=== PATIENT | female | born 1945 | race African-American/Black ===

== ENCOUNTER 2017-08-19 12:55 | Emergency (ER) | payer OTHER, MEDICARE ==
[2017-08-19 13:06] VITALS: BP 146/74; PULSE 83; TEMP 98.1; BMI 30.3
--- NOTE | 2017-08-19 15:15 | PDOC ---
History of Present Illness - General Chief Complaint: Pain Stated Complaint: LT SHOULDER PAIN Time Seen by Provider: 08/19/17 14:49 History Source: Patient Exam Limitations: No Limitations - History of Present Illness Initial Comments: 08/19/17 15:16 My chief complaint left lateral neck pain radiating down left arm to left middle finger, left upper back History of Present Illness: Patient is a 71-year-old female with a history of rzt-prbtgah-laimgqhae diabetes, hypertension, hyperlipidemia here today complaining of left lateral neck pain radiating to her left shoulder down her left arm to her left finger times one month. Patient also reports having increased pain in her left shoulder with movement of her left shoulder that radiated to her left posterior upper back. Patient reports that she has had slight decreased range of motion of her left middle distal finger since she has had this pain times one month. Patient denies any injuries or fall. Patient denies any weakness of left arm or any numbness of arm. Patient has not taken anything for pain. Patient has slightly decreased range of motion at her left shoulder. Occurred: reports: other (once ) Severity: reports: moderate Upper Extremity Pain Location: left: 3rd finger, forearm, arm (left ), shoulder , other (lateral neck ) Method of Injury: reports: unknown Modifying Factors: improves with: None Extremity Pain Location - Extremity Pain Location Extremity Pain Locations: left: 3rd finger, forearm, arm Past History - Past Medical History Allergies/Adverse Reactions: Allergies Allergy/AdvReac Type Severity Reaction Status Date / Time meloxicam AdvReac Intermediate Itching Verified 08/19/17 13:02 Home Medications: Ambulatory Orders Atorvastatin Ca [Lipitor] 40 mg PO HS 05/10/16 Benazepril HCl 10 mg PO DAILY 05/10/16 Cholecalciferol (Vitamin D3) [Vitamin D3] 2,000 unit PO DAILY 05/10/16 Divalproex [Depakote -] 500 mg PO DAILY 05/10/16 Ferrous Sulfate [Feosol] 325 mg PO DAILY 05/10/16 Hydrochlorothiazide [Hctz -] 12.5 mg PO DAILY 05/10/16 Metformin HCl 500 mg PO DAILY 05/10/16 Amlodipine Besylate 5 mg PO DAILY 11/18/16 Acetaminophen with Codeine [Tylenol with Codeine #3 Tablet] 1 each PO Q6H PRN # 12 tablet MDD 4 08/19/17 Aspirin [ASA -] 81 mg PO DAILY 08/19/17 Metoprolol Succinate [Toprol Xl] 50 mg PO ASDIR 08/19/17 Anemia: No Asthma: No Cancer: No Cardiac Disorders: No CVA: No COPD: No CHF: No Dementia: No Diabetes: Yes GI Disorders: No Disorders: No HTN: Yes Hypercholesterolemia: Yes Liver Disease: No Seizures: No Thyroid Disease: No - Surgical History Abdominal Surgery: Yes (HEMMORHOIDECTOMY) Appendectomy: No Cardiac Surgery: No Cholecystectomy: No Lung Surgery: No Neurologic Surgery: No Orthopedic Surgery: No - Suicide/Smoking/Psychosocial Hx Smoking History: Never smoked Have you smoked in the past 12 months: No Hx Alcohol Use: No Drug/Substance Use Hx: No Substance Use Type: None Hx Substance Use Treatment: No Review of Systems - Review of Systems Able to Perform ROS?: Yes Constitutional: No: Symptoms Reported HEENTM: No: Symptoms Reported Respiratory: No: Symptoms reported Cardiac (ROS): No: Symptoms Reported, Chest Tightness Musculoskeletal: Yes: Joint Pain (left shoulder, upper and lower left arm to left 3rd finger), Neck Pain (left neck ) Integumentary: No: Symptoms Reported Neurological: No: Symptoms reported *Physical Exam - Vital Signs Last Vital Signs Temp Pulse Resp BP Pulse Ox 98.1 F 83 19 146/74 100 08/19/17 13:03 08/19/17 13:03 08/19/17 13:03 08/19/17 13:03 08/19/17 13:03 - Physical Exam General Appearance: Yes: Appropriately Dressed Neck: positive: Tender lateral (left lateral ). negative: Tender, Decreased range of motion, Lymphadenopathy (R), Lymphadenopathy (L), Rigidity, Tender midline Respiratory/Chest: positive: Lungs Clear, Normal Breath Sounds. negative: Chest Tender, Respiratory Distress Cardiovascular: positive: Regular Rhythm, Regular Rate, S1, S2 Musculoskeletal: positive: Normal Inspection. negative: CVA Tenderness, CVA Tenderness (R), CVA Tenderness (L), Decreased Range of Motion, Vertebral Tenderness Extremity: positive: Normal Capillary Refill, Tender (left shoulder ). negative : Normal Inspection, Normal Range of Motion (slightly decreased left shoulder, decreased rom left DIP jt. ) Integumentary: positive: Normal Color Neurologic: positive: Alert, Normal Response, Respond to painful stimul, Responsive. negative: Numbness, Sensory Deficit (left arm, hand. digits) ED Treatment Course - RADIOLOGY Radiology Studies Ordered: Category Date Time Status SHOULDER-LEFT [RAD] Stat Radiology 08/19/17 15:09 Ordered SPINE-CERVICAL [RAD] Stat Radiology 08/19/17 15:09 Ordered Medical Decision Making - Medical Decision Making 08/19/17 15:36 Patient is a 71-year-old female with a history of [id number] diabetes , hypertension, hyperlipidemia here today complaining of left lateral neck pain radiating to her left shoulder down her left arm to her left finger times one month. Patient also reports having increased pain in her left shoulder with movement of her left shoulder that radiated to her left posterior upper back. Patient reports that she has had slight decreased range of motion of her left middle distal finger since she has had this pain times one month. Patient denies any injuries or fall. Patient denies any weakness of left arm or any numbness of arm. Patient has not taken anything for pain. Patient has slightly decreased range of motion at her left shoulder. left neck pain with radiation down left arm to 3rd finger left shoulder pain left upper back pain PLAN: xray cervical spine moderate degenerative arthritis, no fracture or acute bony abnormalities per Dr. Camargo xray left shoulder no fracture or acute bony abnormalities per Dr. Camargo 08/19/17 15:57 acetaminophen with codeine # 3 one tab every 6 hrs prn pain follow up with ortho 08/19/17 16:24 *DC/Admit/Observation/Transfer Diagnosis at time of Disposition: Cervical radiculopathy Shoulder pain, left Qualifiers: Chronicity: acute Qualified Code(s): M25.512 - Pain in left shoulder - Prescriptions Prescriptions: Acetaminophen with Codeine [Tylenol with Codeine #3 Tablet] 1 each PO Q6H PRN # 12 tablet MDD 4 PRN Reason: Pain - Referrals Referrals: Dennis Alvarez MD [Primary Care Provider] - Iron [place] MD [Staff Physician] - - Patient Instructions Additional Instructions: FOLLOW UP WITH ORTHOPEDIST SOON POSSIBLE AVOID ANY STRENOUS EXERCISES OR LIFTING RETURN TO EMERGENCY ROOM IF SYMPTOMS WORSEN PATIENT VOICED UNDERSTANDING OF DISCHARGE INSTRUCTIONS AND ALL QUESTIONS WERE ANSWERED - Post Discharge Activity
== END 2017-08-19 16:29 | disposition home or self-care (01) ==
LOC: JERFT 12:55
DX: M54.12 Radiculopathy, cervical region (principal); I10 Essential (primary) hypertension; Z79.84 Long term (current) use of oral hypoglycemic drugs; E78.00 Pure hypercholesterolemia, unspecified
CPT/HCPCS: 72050-TC; 73030-TC-LT; 99281-25

== ENCOUNTER 2019-01-26 19:54 | Emergency (ER) | payer OTHER, MEDICARE ==
--- NOTE | 2019-01-26 19:58 | PDOC ---
Rapid Medical Evaluation Time Seen by Provider: 01/26/19 19:58 Medical Evaluation: Allergies Allergy/AdvReac Type Severity Reaction Status Date / Time meloxicam AdvReac Intermediate Itching Verified 11/28/17 13:00 01/26/19 19:59 I have performed a brief in-person evaluation of this patient. The patient presents with a chief complaint of: palpitations, shortness of breath Pertinent physical exam findings:stable and in NAD, non-focal I have ordered the following:labs, ekg, chest xray The patient will proceed to the ED for further evaluation. 01/26/19 20:16 01/26/19 20:23
[2019-01-26 20:19] VITALS: BMI 30.7
[2019-01-26 21:54] LABS: BASO % 0.4 % (0-2.0); EOS % 1.3 % (0-4.5); HEMATOCRIT 37.3 % (32.4-45.2); HEMOGLOBIN 11.5 GM/dL (10.7-15.3); LYMPH % 42.8 % (8-40); MCH 22.7 pg (25.7-33.7); MCHC 30.8 g/dl (32.0-36.0); MEAN CELL VOLUME 73.8 fl (80-96); MONO % 8.1 % (3.8-10.2); NEUT % 47.4 % (42.8-82.8); PLATELET COUNT 323 K/MM3 (134-434); RBC 5.05 M/mm3 (3.60-5.2); RDW 15.4 % (11.6-15.6); WHITE BLOOD COUNT 7.4 K/mm3 (4.0-10.0)
[2019-01-26 22:23] LABS: ALBUMIN 4.3 g/dl (3.4-5.0); ALK PHOS 66 U/L (45-117); ANION GAP 6 MMOL/L (8-16); BILIRUBIN,TOTAL 0.4 mg/dL (0.2-1); BLOOD UREA NITROGEN 16 mg/dL (7-18); CALCIUM 9.7 mg/dL (8.5-10.1); CHLORIDE 104 mmol/L (98-107); CO2 27 mmol/L (21-32); CREATININE 1.2 mg/dL (0.55-1.3); GLUCOSE,RANDOM 101 mg/dL (74-106); POTASSIUM 4.4 mmol/L (3.5-5.1); SGOT/AST 25 U/L (15-37); SGPT/ALT 45 U/L (13-61); SODIUM 137 mmol/L (136-145); TOT PROT 9.3 g/dl (6.4-8.2)
[2019-01-26] MEDS ORDERED: METOPROLOL TARTRATE 25 MG TABLET (FP) PO ONE (22:49)
[2019-01-26] MEDS ORDERED: METOPROLOL TARTRATE 25 MG TABLET (FP) ONE (23:04)
--- NOTE | 2019-01-26 23:09 | PDOC ---
Documentation entered by Ángel Avendaño SCRIBE, acting as scribe for Ceci Agustin MD. Ceci Agustin MD: This documentation has been prepared by the Kateryna umanzor Xhesika, SCRIBE, under my direction and personally reviewed by me in its entirety. I confirm that the documentation accurately reflects all work, treatment, procedures, and medical decision making performed by me. History of Present Illness - General Chief Complaint: Palpitations Stated Complaint: PALPITATIONS Time Seen by Provider: 01/26/19 19:58 History Source: Patient Exam Limitations: No Limitations - History of Present Illness Initial Comments: 01/26/19 22:44 The patient is a 73 year old female, with a significant PMH of Hypertension, hyperlipidemia, and diabetes who presents to the emergency department with 2 episodes of chest palpitations and SOB. The patient states her symptoms began at 5pm after eating dinner, lasted 5 minutes before subsiding and recurred again at 6pm. As per daughter, the patient was feeling weak, however, the patient denies any complaints. The patient states her last stress test and echo was in 2018. The patient denies fever, chills, nausea, vomiting, diarrhea or constipation. The patient denies dysuria, frequency, urgency or hematuria. Allergy: meloxicam Surgical History: HEMORRHOIDECTOMY, shoulder surgery, TL Social History: None reported PCP: Dennis Little Past History - Past Medical History Allergies/Adverse Reactions: Allergies Allergy/AdvReac Type Severity Reaction Status Date / Time meloxicam AdvReac Intermediate Itching Verified 01/26/19 20:19 Home Medications: Ambulatory Orders Atorvastatin Ca [Lipitor] 40 mg PO HS 05/10/16 Benazepril HCl 10 mg PO DAILY 05/10/16 Cholecalciferol (Vitamin D3) [Vitamin D3] 2,000 unit PO DAILY 05/10/16 Hydrochlorothiazide [Hctz -] 12.5 mg PO DAILY 05/10/16 metFORMIN HCL [Metformin HCl] 500 mg PO DAILY 05/10/16 Amlodipine Besylate 5 mg PO DAILY 11/18/16 Aspirin [ASA -] 81 mg PO DAILY 08/19/17 Anemia: No Asthma: No Cancer: No Cardiac Disorders: No CVA: No COPD: No CHF: No Dementia: No Diabetes: Yes GI Disorders: No Disorders: No HTN: Yes Hypercholesterolemia: Yes Liver Disease: No Seizures: No Thyroid Disease: No - Surgical History Abdominal Surgery: Yes (HEMMORHOIDECTOMY) Appendectomy: No Cardiac Surgery: No Cholecystectomy: No Lung Surgery: No Neurologic Surgery: No Orthopedic Surgery: No - Suicide/Smoking/Psychosocial Hx Smoking History: Unknown if ever smoked Have you smoked in the past 12 months: No Information on smoking cessation initiated: No Hx Alcohol Use: No Drug/Substance Use Hx: No Substance Use Type: None Hx Substance Use Treatment: No Cardiac Specific PMH - Complaint Specific PMHX Pacemaker: No Review of Systems - Review of Systems Able to Perform ROS?: Yes Comments:: 01/26/19 22:46 GENERAL/CONSTITUTIONAL: No fever or chills. No weakness. HEAD, EYES, EARS, NOSE AND THROAT: No change in vision. No ear pain or discharge. No sore throat. CARDIOVASCULAR: (+) chest palpitations. (+) shortness of breath. RESPIRATORY: No cough, wheezing, or hemoptysis. GASTROINTESTINAL: No nausea, vomiting, diarrhea or constipation. GENITOURINARY: No dysuria, frequency, or change in urination. MUSCULOSKELETAL: No joint or muscle swelling or pain. No neck or back pain. SKIN: No rash NEUROLOGIC: No headache, vertigo, loss of consciousness, or change in strength/ sensation. ENDOCRINE: No increased thirst. No abnormal weight change. HEMATOLOGIC/LYMPHATIC: No anemia, easy bleeding, or history of blood clots. ALLERGIC/IMMUNOLOGIC: No hives or skin allergy. *Physical Exam - Vital Signs Last Vital Signs Temp Pulse Resp BP Pulse Ox 98.0 F 110 H 20 147/109 H 99 01/26/19 22:43 01/26/19 22:43 01/26/19 22:43 01/26/19 22:43 01/26/19 22:43 - Physical Exam Comments: 01/26/19 22:46 GENERAL: Awake, alert, and fully oriented, in no acute distress HEAD: No signs of trauma EYES: PERRLA, EOMI, sclera anicteric, conjunctiva clear ENT: Auricles normal inspection, hearing grossly normal, nares patent, oropharynx clear without exudates. Moist mucosa NECK: Normal ROM, supple, no lymphadenopathy, JVD, or masses LUNGS: Breath sounds equal, clear to auscultation bilaterally. No wheezes, and no crackles HEART: Regular rate and rhythm, normal S1 and S2, no murmurs, rubs or gallops ABDOMEN: Soft, nontender, normoactive bowel sounds. No guarding, no rebound. No masses EXTREMITIES: (+) +1 mild pitting edema. Normal range of motion No clubbing or cyanosis. No cords, erythema, or tenderness NEUROLOGICAL: Cranial nerves II through XII grossly intact. Normal speech, normal gait SKIN: Warm, Dry, normal turgor, no rashes or lesions noted. ED Treatment Course - LABORATORY CBC & Chemistry Diagram: 01/26/19 21:30 01/26/19 21:30 - ADDITIONAL ORDERS Additional order review: Laboratory Results 01/26/19 21:30 Sodium 137 Potassium 4.4 Chloride 104 Carbon Dioxide 27 Anion Gap 6 L BUN 16 Creatinine 1.2 Est GFR (CKD-EPI)AfAm 51.20 Est GFR (CKD-EPI)NonAf 44.17 Random Glucose 101 Calcium 9.7 Total Bilirubin 0.4 AST 25 ALT 45 Alkaline Phosphatase 66 Creatine Kinase 108 Troponin I < 0.02 Total Protein 9.3 H Albumin 4.3 01/26/19 21:30 RBC 5.05 MCV 73.8 L MCHC 30.8 L RDW 15.4 MPV 7.0 L Neutrophils % 47.4 D Lymphocytes % 42.8 H Monocytes % 8.1 Eosinophils % 1.3 Basophils % 0.4 - Medications Given in the ED: ED Medications Discontinued Medications Generic Name Dose Route Start Last Admin Trade Name Freq PRN Reason Stop Dose Admin Metoprolol Tartrate 25 mg 01/26/19 22:49 01/26/19 23:06 Lopressor - PO 01/26/19 22:50 25 mg ONCE ONE Administration Medical Decision Making - Medical Decision Making 01/26/19 23:09 73-year-old female had 2 episodes in the late afternoon of palpitations followed by some shortness of breath. She did not have any substernal chest pain. There was no nausea, vomiting or diaphoresis. Primary care physician, Dr. Dennis Alvarez She states that she has had an echo in the office this year. EKG is normal sinus rhythm at 97 bpm, QTC is 396 ms, no evidence of acute ischemia Chest x-ray does not show any infiltrates, no effusions, no significant cardiomegaly. Plan 2 troponins *DC/Admit/Observation/Transfer Diagnosis at time of Disposition: Palpitations - Discharge Dispostion Condition at time of disposition: Stable - Referrals Referrals: Dennis Alvarez MD [Primary Care Provider] - - Patient Instructions Printed Discharge Instructions: DI for Palpitations Additional Instructions: please followup with your [facility] - Post Discharge Activity
[2019-01-27 02:30] VITALS: BP 147/95; PULSE 66; TEMP 98.1
--- NOTE | 2019-01-27 12:58 | EKG ---
Test Reason : Blood Pressure : / mmHG Vent. Rate : 097 BPM Atrial Rate : 097 BPM P-R Int : 170 ms QRS Dur : 062 ms QT Int : 312 ms P-R-T Axes : 072 019 040 degrees QTc Int : 396 ms NORMAL SINUS RHYTHM POSSIBLE LEFT ATRIAL ENLARGEMENT NONSPECIFIC T WAVE ABNORMALITY ABNORMAL ECG WHEN COMPARED WITH ECG OF 18-NOV-2016 13:36, NO SIGNIFICANT CHANGE WAS FOUND Confirmed by LIBIA PHILLIPS, THIEN ([id number]) on 01/27/2019 12:58:00 PM Referred By: Confirmed By:THIEN REZA MD
== END 2019-01-27 02:31 | disposition home or self-care (01) ==
LOC: JER 19:54
DX: R00.2 Palpitations (principal); I10 Essential (primary) hypertension; E78.5 Hyperlipidemia, unspecified; E11.9 Type 2 diabetes mellitus without complications; Z79.84 Long term (current) use of oral hypoglycemic drugs
CPT/HCPCS: 36415; 71045-TC-FY; 80053; 82550; 84484; 85025; 93005; 93010; 99283-25

== ENCOUNTER 2019-02-22 09:23 | Emergency (ER) | payer OTHER, MEDICARE | END 2019-02-22 10:38 | disposition home or self-care (01) | LOC: JERFT 09:23 ==

== ENCOUNTER 2022-02-10 11:07 | Emergency (ER) | payer OTHER ==
[2022-02-10 11:11] VITALS: BP 144/81; PULSE 74; TEMP 98.6; BMI 32.0
[2022-02-10] MEDS ORDERED: IBUPROFEN 600 MG TABLET (FP) PO ONE ×2 (11:51→11:55)
[2022-02-10] MEDS ORDERED: AMOX TR/POT CLAV 875MG/125MG TABLETS (FP) PO ONE (11:58)
[2022-02-10] MEDS ORDERED: AMOX TR/POT CLAV 875MG/125MG TABLETS (FP) ONE (11:59)
== END 2022-02-10 12:18 | disposition home or self-care (01) ==
LOC: JERFT 11:07
DX: K04.7 Periapical abscess without sinus (principal)
CPT/HCPCS: 99283-25

== ENCOUNTER 2022-06-17 15:16 | Emergency (ER) | payer OTHER ==
[2022-06-17 15:33] VITALS: BP 148/84; PULSE 74; RESP 18; TEMP 98.8; BMI 33.0
[2022-06-17] MEDS ORDERED: METHOCARBAMOL 500 MG TABLET PO ONE (16:09)
[2022-06-17] MEDS ORDERED: METHOCARBAMOL 500 MG TABLET ONE (16:11)
== END 2022-06-17 17:34 | disposition home or self-care (01) ==
LOC: JER 15:16 → JERFT 15:16
DX: M19.011 Primary osteoarthritis, right shoulder (principal)
CPT/HCPCS: 73030-TC-RT-FY; 99283-25

== ENCOUNTER 2023-07-11 20:47 | Emergency (ER) | payer OTHER ==
[2023-07-11 20:56] VITALS: BP 163/76; PULSE 99; RESP 18; TEMP 98.2; BMI 33.6
== END 2023-07-11 22:19 | disposition home or self-care (01) ==
LOC: JER 20:47
DX: K06.8 Other specified disorders of gingiva and edentulous alveolar ridge (principal)
CPT/HCPCS: 99282-25

== ENCOUNTER 2024-03-06 00:04 | Observation (INO) | payer OTHER ==
[2024-03-06] MEDS: SODIUM CHLORIDE 0.9% 500 ML INFUS.BAG IV ONE (01:10)
[2024-03-06 02:39] LABS: BASO % 0.3 % (0-2.0); EOS % 0.2 % (0-4.5); HEMATOCRIT 33.8 % (32.4-45.2); HEMOGLOBIN 11.1 GM/dL (10.7-15.3); LYMPH % 20.6 % (8-40); MCH 23.7 pg (25.7-33.7); MCHC 32.7 g/dl (32.0-36.0); MEAN CELL VOLUME 72.5 fl (80-96); MONO % 5.6 % (3.8-10.2); NEUT % 73.3 % (42.8-82.8); PLATELET COUNT 279 10^3/uL (134-434); RBC 4.66 M/mm3 (3.60-5.2); WHITE BLOOD COUNT 7.9 K/mm3 (4.0-10.0)
[2024-03-06 02:46] LABS: INR 1.17 (0.83-1.09); PROTHROMBIN TIME (PATIENT) 13.2 SEC (9.7-13.0)
[2024-03-06 02:49] LABS: ACTIVATED PTT 26.5 SECONDS (25.2-36.5)
[2024-03-06 03:26] LABS: POTASSIUM 3.9 mmol/L (3.5-5.1)
[2024-03-06 03:27] LABS: CALCIUM 9.2 mg/dL (8.5-10.1)
[2024-03-06 03:28] LABS: ALBUMIN 4.1 g/dl (3.4-5.0); BLOOD UREA NITROGEN 17.5 mg/dL (7-18)
[2024-03-06 03:31] LABS: CREATININE 1.2 mg/dL (0.55-1.3)
[2024-03-06 03:33] LABS: BILIRUBIN,TOTAL 0.6 mg/dL (0.2-1); TOT PROT 8.5 g/dl (6.4-8.2)
[2024-03-06 05:50] LABS: EPI CELLS 7 /uL (0-25.1); HYALINE CASTS 1 /uL (0-3.1); PH,URINE 5.5 (5.0-8.0); URINE APPEARANCE CLEAR; URINE BACTERIA 200 /uL (0-1359); URINE BILIRUBIN NEGATIVE (NEGATIVE); URINE COLOR YELLOW; URINE GLUCOSE (UA) NEGATIVE (NEGATIVE); URINE KETONE NEGATIVE (NEGATIVE); URINE LEUK ESTERASE 2+ (NEGATIVE); URINE NITRITE NEGATIVE (NEGATIVE); URINE PROTEIN NEGATIVE (NEGATIVE); URINE UROBILINOGEN 0.2 mg/dL (0.2-1.0); URINE WBC 95 /uL (0-25.8)
[2024-03-06] MEDS ORDERED: CEFTRIAXONE 1 GM/50 ML BAG ONE (06:23)
[2024-03-06] MEDS: CEFTRIAXONE 1 GM in DEXTROSE 5%-WATER - 100 ML IVPB ONE (06:26)
[2024-03-06 07:37] LABS: URINE RBC 22.2 /uL (0-23.9)
[2024-03-06 14:39] VITALS: BMI 31.6
[2024-03-06] MEDS ORDERED: MECLIZINE HCL 12.5 MG TABLET PO PRN (17:57)
[2024-03-07] MEDS: CEFTRIAXONE 1 GM in DEXTROSE 5%-WATER - 50 ML IVPB SCH (10:55)
[2024-03-07] MEDS: ASPIRIN 81 MG CHEWABLE TABLETS PO SCH (14:55)
[2024-03-07] MEDS: ATORVASTATIN CA 40 MG TABLET (FP) PO SCH (21:48)
[2024-03-08] MEDS: HYDROCHLOROTHIAZIDE 25 MG TABLET (FP) PO SCH (09:26)
[2024-03-08] MEDS: CHOLECALCIFEROL (VIT D3) 1,000 UNIT (25 MCG) TABLET PO SCH (09:26)
[2024-03-08] MEDS: amLODIPine BESYLATE 5 MG TABLET (FP) PO SCH (09:26)
[2024-03-08] MEDS: DONEPEZIL HCL 5 MG TABLET (FP) PO SCH (09:26)
[2024-03-08] MEDS: ESCITALOPRAM OXALATE 10 MG TABLET PO SCH (09:26)
[2024-03-08] MEDS: LOSARTAN POTASSIUM 50 MG TABLET PO SCH (09:27)
[2024-03-09 14:21] VITALS: BP 149/80; PULSE 74; RESP 19; TEMP 98.1
== END 2024-03-09 14:50 | disposition home or self-care (01) ==
LOC: JER 00:04 → JERBED 10:39 → J4S 12:15
PROVIDERS: ADMIT Internal Medicine; ATTEND Internal Medicine
PROC: 3E03329 Introduction of Other Anti-infective into Peripheral Vein, Percutaneous Approach (ICD-10-PCS; principal; 2024-03-06)
PROC: 3E0337Z Introduction of Electrolytic and Water Balance Substance into Peripheral Vein, Percutaneous Approach (ICD-10-PCS; 2024-03-06)
DX: N39.0 Urinary tract infection, site not specified (principal); J18.9 Pneumonia, unspecified organism; R42 Dizziness and giddiness; E78.5 Hyperlipidemia, unspecified; R41.3 Other amnesia; E11.9 Type 2 diabetes mellitus without complications; Z88.8 Allergy status to other drugs, medicaments and biological substances
CPT/HCPCS: 0241U-QW; 36415; 70551-TC; 71045-TC-FY; 71046-TC-FY; 80053; 81003; 82962; 84484; 85025; 85610; 85730; 87086; 87186; 93005; 93010; 96365; 96366; 97116-GP; 97161-GP; 99285-25; G0378

== ENCOUNTER 2024-03-12 14:53 | Observation (INO) | payer OTHER ==
[2024-03-12 17:00] LABS: EOS % 0.9 % (0-4.5); HEMATOCRIT 35.8 % (32.4-45.2); HEMOGLOBIN 11.5 GM/dL (10.7-15.3); LYMPH % 34.1 % (8-40); MCH 23.7 pg (25.7-33.7); MEAN CELL VOLUME 73.9 fl (80-96); MEAN PLT VOLUME 7.2 fl (7.5-11.1); MONO % 10.5 % (3.8-10.2); NEUT % 53.6 % (42.8-82.8); PLATELET COUNT 287 10^3/uL (134-434); RBC 4.85 M/mm3 (3.60-5.2); RDW 14.5 % (11.6-15.6); WHITE BLOOD COUNT 6.2 K/mm3 (4.0-10.0)
[2024-03-12 17:01] LABS: BASO % 0.9 % (0-2.0)
[2024-03-12 17:20] LABS: ACTIVATED PTT 30.5 SECONDS (25.2-36.5); INR 1.14 (0.83-1.09); PROTHROMBIN TIME (PATIENT) 13.1 SEC (9.7-13.0)
[2024-03-12 17:26] LABS: ALBUMIN 3.9 g/dl (3.4-5.0); CALCIUM 9.9 mg/dL (8.5-10.1)
[2024-03-12] MEDS: SODIUM CHLORIDE 0.9% 500 ML INFUS.BAG IV ONE (17:26)
[2024-03-12 17:27] LABS: BLOOD UREA NITROGEN 26.8 mg/dL (7-18); MAGNESIUM 2.1 mg/dL (1.8-2.4)
[2024-03-12 17:29] LABS: CREATININE 1.8 mg/dL (0.55-1.3)
[2024-03-12 17:30] LABS: PHOSPHOROUS 3.7 mg/dL (2.5-4.9)
[2024-03-12 17:31] LABS: BILIRUBIN,TOTAL 1.2 mg/dL (0.2-1); TOT PROT 8.8 g/dl (6.4-8.2)
[2024-03-12] MEDS ORDERED: ACETAMINOPHEN 325 MG TABLET (FP) PO PRN (20:01)
[2024-03-12] MEDS ORDERED: DOCUSATE SODIUM 100 MG CAPSULE (FP) PO PRN (20:01)
[2024-03-12] MEDS ORDERED: INSULIN ASPART SLIDING SCALE (NOVOLOG) 1 VIAL SQ ONE (23:04)
[2024-03-12] MEDS: INSULIN ASPART SLIDING SCALE (NOVOLOG) 1 VIAL SQ SCH (23:09)
[2024-03-13] MEDS ORDERED: MECLIZINE HCL 12.5 MG TABLET PO PRN (00:20)
[2024-03-13 08:22] LABS: BASO % 0.7 % (0-2.0); EOS % 3.5 % (0-4.5); HEMATOCRIT 32.9 % (32.4-45.2); HEMOGLOBIN 10.8 GM/dL (10.7-15.3); LYMPH % 37.5 % (8-40); MCH 23.6 pg (25.7-33.7); MCHC 32.8 g/dl (32.0-36.0); MEAN CELL VOLUME 72.1 fl (80-96); MEAN PLT VOLUME 7.2 fl (7.5-11.1); MONO % 12.1 % (3.8-10.2); NEUT % 46.2 % (42.8-82.8); PLATELET COUNT 271 10^3/uL (134-434); RBC 4.56 M/mm3 (3.60-5.2); RDW 14.6 % (11.6-15.6); WHITE BLOOD COUNT 4.8 K/mm3 (4.0-10.0)
[2024-03-13 08:28] LABS: POTASSIUM 3.4 mmol/L (3.5-5.1)
[2024-03-13 08:33] LABS: MAGNESIUM 1.6 mg/dL (1.8-2.4)
[2024-03-13 08:36] LABS: CREATININE 1.1 mg/dL (0.55-1.3)
[2024-03-13] MEDS: ESCITALOPRAM OXALATE 10 MG TABLET PO SCH (09:03)
[2024-03-13] MEDS: DONEPEZIL HCL 5 MG TABLET (FP) PO SCH (09:03)
[2024-03-13] MEDS: ASPIRIN 81 MG CHEWABLE TABLETS PO SCH (09:03)
[2024-03-13] MEDS: CHOLECALCIFEROL (VIT D3) 400 UNIT (10 MCG) TABLET PO SCH (09:03)
[2024-03-13] MEDS: amLODIPine BESYLATE 5 MG TABLET (FP) PO SCH (09:03)
[2024-03-13] MEDS: SODIUM CHLORIDE 0.45% 1,000 ML IV SCH (10:44)
[2024-03-13 11:31] VITALS: RESP 18
[2024-03-13 13:10] LABS: EPI CELLS 9 /uL (0-25.1); HYALINE CASTS 2 /uL (0-3.1); PH,URINE 5.5 (5.0-8.0); URINE APPEARANCE CLEAR; URINE BACTERIA 1 /uL (0-1359); URINE BILIRUBIN NEGATIVE (NEGATIVE); URINE COLOR YELLOW; URINE GLUCOSE (UA) NEGATIVE (NEGATIVE); URINE KETONE NEGATIVE (NEGATIVE); URINE LEUK ESTERASE TRACE (NEGATIVE); URINE NITRITE NEGATIVE (NEGATIVE); URINE PROTEIN NEGATIVE (NEGATIVE); URINE RBC 5 /uL (0-23.9); URINE UROBILINOGEN 0.2 mg/dL (0.2-1.0); URINE WBC 21 /uL (0-25.8)
[2024-03-13] MEDS ORDERED: SODIUM CHLORIDE 0.45% 1,000 ML with POTASSIUM CHLORIDE 10 MEQ IV SCH (14:46)
[2024-03-13] MEDS: MAGNESIUM OXIDE 400 MG TABLET (FP) PO ONE ×2 (15:51→16:00)
[2024-03-13] MEDS: POTASSIUM CHLORIDE ORAL LIQUID 20 MEQ/15 ML PO ONE (15:51)
[2024-03-13] MEDS: POTASSIUM CHLORIDE 10 MEQ in SODIUM CHLORIDE 0.45% 1,000 ML IV SCH (15:58)
[2024-03-13] MEDS: ATORVASTATIN CA 40 MG TABLET (FP) PO SCH (21:49)
[2024-03-15] MEDS ORDERED: MELATONIN 5 MG TABLETS PO PRN
[2024-03-15 09:53] LABS: POTASSIUM 3.7 mmol/L (3.5-5.1)
[2024-03-15 09:55] LABS: ALBUMIN 3.6 g/dl (3.4-5.0); CALCIUM 9.6 mg/dL (8.5-10.1)
[2024-03-15 09:59] LABS: CREATININE 0.9 mg/dL (0.55-1.3)
[2024-03-15 10:00] LABS: BILIRUBIN,TOTAL 0.9 mg/dL (0.2-1); TOT PROT 7.7 g/dl (6.4-8.2)
[2024-03-15] MEDS ORDERED: CHOLECALCIFEROL (VIT D3) 1,000 UNIT (25 MCG) TABLET PO SCH (12:03)
[2024-03-15 17:41] VITALS: BP 135/71; PULSE 75; TEMP 98.3
[2024-03-16 19:08] VITALS: BMI 32.5
== END 2024-03-15 17:45 | disposition home or self-care (01) ==
LOC: JER 14:53 → JERBED 18:48 → J6S 23:31
PROVIDERS: ADMIT Internal Medicine; ATTEND Family Medicine
PROC: 3E033GC Introduction of Other Therapeutic Substance into Peripheral Vein, Percutaneous Approach (ICD-10-PCS; principal; 2024-03-12)
PROC: 3E0337Z Introduction of Electrolytic and Water Balance Substance into Peripheral Vein, Percutaneous Approach (ICD-10-PCS; 2024-03-12)
DX: N17.9 Acute kidney failure, unspecified (principal); R94.5 Abnormal results of liver function studies; E78.5 Hyperlipidemia, unspecified; R63.0 Anorexia; R53.1 Weakness; E11.9 Type 2 diabetes mellitus without complications; Z88.8 Allergy status to other drugs, medicaments and biological substances
CPT/HCPCS: 36415; 70450-TC; 71045-TC-FY; 80048; 80053; 81003; 82962; 83735; 84100; 84439; 84443; 85025; 85610; 85730; 86850; 86900; 86901; 87086; 87635; 93005; 93010; 96361; 96365; 97116-GP; 97161-GP; 99285-25; G0378

== ENCOUNTER 2024-04-24 14:33 | Observation (INO) | payer OTHER ==
[2024-04-24 14:58] VITALS: BMI 26.5
[2024-04-24 17:47] LABS: BASO % 0.6 % (0-2.0); EOS % 0.7 % (0-4.5); HEMOGLOBIN 11.3 GM/dL (10.7-15.3); LYMPH % 43.8 % (8-40); MCH 23.2 pg (25.7-33.7); MCHC 32.3 g/dl (32.0-36.0); MEAN CELL VOLUME 71.8 fl (80-96); MEAN PLT VOLUME 7.4 fl (7.5-11.1); MONO % 7.2 % (3.8-10.2); NEUT % 47.7 % (42.8-82.8); PLATELET COUNT 310 10^3/uL (134-434); RBC 4.87 M/mm3 (3.60-5.2); RDW 14.8 % (11.6-15.6); WHITE BLOOD COUNT 6.5 K/mm3 (4.0-10.0)
[2024-04-24 17:49] LABS: EPI CELLS 20 /uL (0-25.1); HYALINE CASTS 2 /uL (0-3.1); PH,URINE 5.5 (5.0-8.0); URINE APPEARANCE CLEAR; URINE BACTERIA 297 /uL (0-1359); URINE BILIRUBIN NEGATIVE (NEGATIVE); URINE COLOR YELLOW; URINE GLUCOSE (UA) NEGATIVE (NEGATIVE); URINE KETONE TRACE (NEGATIVE); URINE LEUK ESTERASE 3+ (NEGATIVE); URINE NITRITE NEGATIVE (NEGATIVE); URINE PROTEIN 1+ (NEGATIVE); URINE RBC 21 /uL (0-23.9); URINE UROBILINOGEN 0.2 mg/dL (0.2-1.0); URINE WBC 246 /uL (0-25.8)
[2024-04-24] MEDS: SODIUM CHLORIDE 1,000 ML IV STA (17:50)
[2024-04-24 18:11] LABS: POTASSIUM 4.8 mmol/L (3.5-5.1)
[2024-04-24 18:13] LABS: ALBUMIN 4.4 g/dl (3.4-5.0); CALCIUM 10.6 mg/dL (8.5-10.1)
[2024-04-24 18:17] LABS: CREATININE 2.9 mg/dL (0.55-1.3)
[2024-04-24 18:18] LABS: BILIRUBIN,TOTAL 0.9 mg/dL (0.2-1); TOT PROT 8.8 g/dl (6.4-8.2)
[2024-04-25] MEDS ORDERED: CEFTRIAXONE 1 GM/50 ML BAG ONE (00:11)
[2024-04-25] MEDS: DEXTROSE 5%-0.45% SALINE 1,000 ML IV SCH (00:24)
[2024-04-25] MEDS: CEFTRIAXONE 1 GM in DEXTROSE 5%-WATER - 50 ML IVPB ONE (00:24)
[2024-04-25 08:43] LABS: POTASSIUM 3.9 mmol/L (3.5-5.1)
[2024-04-25 08:45] LABS: BASO % 0.7 % (0-2.0); HEMATOCRIT 33.3 % (32.4-45.2); HEMOGLOBIN 10.6 GM/dL (10.7-15.3); LYMPH % 41.8 % (8-40); MCH 23.3 pg (25.7-33.7); MEAN CELL VOLUME 72.7 fl (80-96); MEAN PLT VOLUME 7.5 fl (7.5-11.1); MONO % 10.6 % (3.8-10.2); NEUT % 44.9 % (42.8-82.8); PLATELET COUNT 278 10^3/uL (134-434); RBC 4.57 M/mm3 (3.60-5.2); WHITE BLOOD COUNT 5.2 K/mm3 (4.0-10.0)
[2024-04-25 08:51] LABS: ALBUMIN 3.6 g/dl (3.4-5.0); BLOOD UREA NITROGEN 48.2 mg/dL (7-18); CALCIUM 9.7 mg/dL (8.5-10.1)
[2024-04-25 08:55] LABS: CREATININE 1.9 mg/dL (0.55-1.3)
[2024-04-25 08:56] LABS: BILIRUBIN,TOTAL 1.1 mg/dL (0.2-1); TOT PROT 7.6 g/dl (6.4-8.2)
[2024-04-25] MEDS ORDERED: amLODIPine BESYLATE 5 MG TABLET (FP) PO SCH (10:00)
[2024-04-25] MEDS: CEFTRIAXONE 1 GM in DEXTROSE 5%-WATER - 50 ML IVPB SCH (11:20)
[2024-04-25] MEDS: ASPIRIN 81 MG CHEWABLE TABLETS PO SCH (11:21)
[2024-04-25] MEDS: amLODIPine BESYLATE 5 MG TABLET (FP) PO SCH (11:22)
[2024-04-25] MEDS: ATORVASTATIN CA 40 MG TABLET (FP) PO SCH (22:07)
[2024-04-25] MEDS: DONEPEZIL HCL 5 MG TABLET (FP) PO SCH (22:07)
[2024-04-25] MEDS ORDERED: MELATONIN 5 MG TABLETS PO PRN (22:22)
[2024-04-26 06:07] VITALS: RESP 18
[2024-04-26 10:05] LABS: HEMATOCRIT 32.5 % (32.4-45.2); HEMOGLOBIN 10.5 GM/dL (10.7-15.3); MCH 23.4 pg (25.7-33.7); MCHC 32.4 g/dl (32.0-36.0); MEAN CELL VOLUME 72.2 fl (80-96); MEAN PLT VOLUME 7.6 fl (7.5-11.1); PLATELET COUNT 279 10^3/uL (134-434); RDW 14.9 % (11.6-15.6); WHITE BLOOD COUNT 4.9 K/mm3 (4.0-10.0)
[2024-04-26 10:26] LABS: POTASSIUM 3.5 mmol/L (3.5-5.1)
[2024-04-26 10:30] LABS: CALCIUM 9.1 mg/dL (8.5-10.1)
[2024-04-26 10:31] LABS: ALBUMIN 3.5 g/dl (3.4-5.0); BLOOD UREA NITROGEN 31.5 mg/dL (7-18)
[2024-04-26 10:34] LABS: CREATININE 1.5 mg/dL (0.55-1.3)
[2024-04-26 10:35] LABS: BILIRUBIN,TOTAL 0.8 mg/dL (0.2-1)
[2024-04-26 10:36] LABS: TOT PROT 7.5 g/dl (6.4-8.2)
[2024-04-26 18:15] VITALS: BP 124/64; PULSE 72; TEMP 98.2
== END 2024-04-26 18:33 | disposition home health service (06) ==
LOC: JER 14:33 → UNDOADMOB 20:04 → JERBED 20:04 → INTOOBSV 20:04 → JERBED 04-25 01:39 → J8W 04-25 01:39
PROVIDERS: ADMIT Internal Medicine; ATTEND Family Medicine
PROC: 3E03329 Introduction of Other Anti-infective into Peripheral Vein, Percutaneous Approach (ICD-10-PCS; principal; 2024-04-25)
PROC: 3E0337Z Introduction of Electrolytic and Water Balance Substance into Peripheral Vein, Percutaneous Approach (ICD-10-PCS; 2024-04-25)
DX: N39.0 Urinary tract infection, site not specified (principal); N17.9 Acute kidney failure, unspecified; R62.7 Adult failure to thrive; R53.1 Weakness; I10 Essential (primary) hypertension; R63.0 Anorexia; E78.5 Hyperlipidemia, unspecified; Z87.440 Personal history of urinary (tract) infections; E11.9 Type 2 diabetes mellitus without complications; R42 Dizziness and giddiness; G43.909 Migraine, unspecified, not intractable, without status migrainosus
CPT/HCPCS: 36415; 71045-TC-FY; 74176-TC; 80053; 81003; 83735; 85025; 85027; 93005; 93010; 96361; 96365; 96366; 97116-GP; 97161-GP; 99285-25; G0378

== ENCOUNTER 2024-05-14 16:59 | Observation (INO) | payer OTHER ==
[2024-05-14 17:05] VITALS: BMI 26.5
[2024-05-14 20:05] LABS: BASO % 0.6 % (0-2.0); EOS % 1.3 % (0-4.5); LYMPH % 37.5 % (8-40); MCH 23.3 pg (25.7-33.7); MCHC 32.3 g/dl (32.0-36.0); MONO % 8.9 % (3.8-10.2); NEUT % 51.7 % (42.8-82.8); RBC 4.31 M/mm3 (3.60-5.2); RDW 15.3 % (11.6-15.6); WHITE BLOOD COUNT 7.8 K/mm3 (4.0-10.0)
[2024-05-14 20:19] LABS: POTASSIUM 4.3 mmol/L (3.5-5.1)
[2024-05-14 20:22] LABS: ALBUMIN 4.2 g/dl (3.4-5.0); BLOOD UREA NITROGEN 31.7 mg/dL (7-18); MAGNESIUM 2.1 mg/dL (1.8-2.4)
[2024-05-14 20:25] LABS: PHOSPHOROUS 3.5 mg/dL (2.5-4.9)
[2024-05-14 20:26] LABS: BILIRUBIN,TOTAL 0.9 mg/dL (0.2-1); TOT PROT 8.4 g/dl (6.4-8.2)
[2024-05-14] MEDS: LACTATED RINGERS SOLUTION 1,000 ML IV STA (20:27)
[2024-05-14 20:35] LABS: MEAN PLT VOLUME 8.1 fl (7.5-11.1); PLATELET COUNT 292 10^3/uL (134-434)
[2024-05-14] MEDS ORDERED: MECLIZINE HCL 12.5 MG TABLET PO PRN (22:48)
[2024-05-15] MEDS: SODIUM CHLORIDE 0.45% 1,000 ML IV SCH (02:03)
[2024-05-15 08:32] LABS: BASO % 0.6 % (0-2.0); EOS % 1.9 % (0-4.5); HEMATOCRIT 33.1 % (32.4-45.2); HEMOGLOBIN 10.5 GM/dL (10.7-15.3); LYMPH % 46.5 % (8-40); MCHC 31.8 g/dl (32.0-36.0); MEAN CELL VOLUME 72.3 fl (80-96); MEAN PLT VOLUME 7.6 fl (7.5-11.1); MONO % 9.2 % (3.8-10.2); NEUT % 41.8 % (42.8-82.8); PLATELET COUNT 250 10^3/uL (134-434); RBC 4.58 M/mm3 (3.60-5.2); RDW 15.1 % (11.6-15.6); WHITE BLOOD COUNT 5.3 K/mm3 (4.0-10.0)
[2024-05-15 08:53] LABS: POTASSIUM 3.4 mmol/L (3.5-5.1)
[2024-05-15 09:02] LABS: CALCIUM 9.8 mg/dL (8.5-10.1)
[2024-05-15 09:05] LABS: CREATININE 1.5 mg/dL (0.55-1.3)
[2024-05-15] MEDS: amLODIPine BESYLATE 5 MG TABLET (FP) PO SCH (10:13)
[2024-05-15] MEDS: CHOLECALCIFEROL (VIT D3) 400 UNIT (10 MCG) TABLET PO SCH (10:13)
[2024-05-15] MEDS: AMOXICILLIN 500 MG CAPSULE (FP) PO SCH (10:13)
[2024-05-15 17:13] LABS: EPI CELLS 6 /uL (0-25.1); HYALINE CASTS 0 /uL (0-3.1); PH,URINE 6.5 (5.0-8.0); URINE APPEARANCE CLEAR; URINE BACTERIA 9 /uL (0-1359); URINE BILIRUBIN NEGATIVE (NEGATIVE); URINE COLOR YELLOW; URINE GLUCOSE (UA) NEGATIVE (NEGATIVE); URINE KETONE NEGATIVE (NEGATIVE); URINE LEUK ESTERASE 1+ (NEGATIVE); URINE NITRITE NEGATIVE (NEGATIVE); URINE PROTEIN NEGATIVE (NEGATIVE); URINE RBC 8 /uL (0-23.9); URINE UROBILINOGEN 0.2 mg/dL (0.2-1.0); URINE WBC 11 /uL (0-25.8)
[2024-05-15] MEDS: MIRTAZAPINE 15 MG TABLET (FP) PO SCH (21:33)
[2024-05-15] MEDS: ATORVASTATIN CA 40 MG TABLET (FP) PO SCH (21:33)
[2024-05-16 08:27] LABS: BASO % 0.6 % (0-2.0); EOS % 2.8 % (0-4.5); HEMATOCRIT 31.3 % (32.4-45.2); HEMOGLOBIN 10.2 GM/dL (10.7-15.3); LYMPH % 58.1 % (8-40); MCH 23.4 pg (25.7-33.7); MCHC 32.7 g/dl (32.0-36.0); MEAN CELL VOLUME 71.5 fl (80-96); MEAN PLT VOLUME 7.8 fl (7.5-11.1); MONO % 9.6 % (3.8-10.2); NEUT % 28.9 % (42.8-82.8); PLATELET COUNT 236 10^3/uL (134-434); RBC 4.38 M/mm3 (3.60-5.2); RDW 15.5 % (11.6-15.6); WHITE BLOOD COUNT 4.4 K/mm3 (4.0-10.0)
[2024-05-16 08:53] LABS: POTASSIUM 3.5 mmol/L (3.5-5.1)
[2024-05-16 09:01] LABS: BLOOD UREA NITROGEN 17.2 mg/dL (7-18)
[2024-05-16 09:03] LABS: BILIRUBIN,TOTAL 0.8 mg/dL (0.2-1); TOT PROT 6.8 g/dl (6.4-8.2)
[2024-05-16 09:04] LABS: CREATININE 1.2 mg/dL (0.55-1.3)
[2024-05-16 09:10] LABS: ALBUMIN 3.3 g/dl (3.4-5.0)
[2024-05-16] MEDS: ACETAMINOPHEN 1000 MG/100 ML BAG IVPB PRN (15:33)
[2024-05-17 09:47] LABS: POTASSIUM 4.6 mmol/L (3.5-5.1)
[2024-05-17 09:53] LABS: ALBUMIN 3.8 g/dl (3.4-5.0); BLOOD UREA NITROGEN 10.9 mg/dL (7-18); CALCIUM 9.6 mg/dL (8.5-10.1)
[2024-05-17 09:57] LABS: BILIRUBIN,TOTAL 0.9 mg/dL (0.2-1)
[2024-05-17 09:58] LABS: CREATININE 1.2 mg/dL (0.55-1.3); TOT PROT 8.2 g/dl (6.4-8.2)
[2024-05-17 10:03] LABS: BASO % 0.7 % (0-2.0); EOS % 3.9 % (0-4.5); HEMATOCRIT 33.9 % (32.4-45.2); HEMOGLOBIN 11.1 GM/dL (10.7-15.3); LYMPH % 57.2 % (8-40); MCH 23.7 pg (25.7-33.7); MCHC 32.6 g/dl (32.0-36.0); MEAN CELL VOLUME 72.5 fl (80-96); MEAN PLT VOLUME 7.8 fl (7.5-11.1); MONO % 9.7 % (3.8-10.2); NEUT % 28.5 % (42.8-82.8); PLATELET COUNT 273 10^3/uL (134-434); RBC 4.68 M/mm3 (3.60-5.2); RDW 15.9 % (11.6-15.6)
[2024-05-17 15:02] VITALS: BP 125/71; PULSE 76; RESP 18; TEMP 97.7
== END 2024-05-17 17:27 | disposition home or self-care (01) ==
LOC: JER 16:59 → JERBED 22:11 → J7W 23:44
PROVIDERS: ADMIT Internal Medicine; ATTEND Family Medicine
PROC: 3E0337Z Introduction of Electrolytic and Water Balance Substance into Peripheral Vein, Percutaneous Approach (ICD-10-PCS; principal; 2024-05-14)
PROC: 3E033NZ Introduction of Analgesics, Hypnotics, Sedatives into Peripheral Vein, Percutaneous Approach (ICD-10-PCS; 2024-05-14)
DX: N17.9 Acute kidney failure, unspecified (principal); E11.22 Type 2 diabetes mellitus with diabetic chronic kidney disease; I12.9 Hypertensive chronic kidney disease with stage 1 through stage 4 chronic kidney disease, or unspecified chronic kidney disease; N18.9 Chronic kidney disease, unspecified; R94.4 Abnormal results of kidney function studies; E78.5 Hyperlipidemia, unspecified; Z87.440 Personal history of urinary (tract) infections; R53.1 Weakness; Z88.8 Allergy status to other drugs, medicaments and biological substances
CPT/HCPCS: 36415; 71045-TC-FY; 76775-TC; 80048; 80053; 81003; 82570; 82962; 83735; 84100; 84156; 84443; 84484; 85025; 87086; 93005; 93010; 96361; 96365; 97116-GP; 97162-GP; 99285-25; G0378; J0131

== ENCOUNTER 2024-08-10 15:11 | Observation (INO) | payer OTHER ==
[2024-08-10 16:51] LABS: HEMATOCRIT 35.2 % (32.4-45.2); HEMOGLOBIN 11.2 GM/dL (10.7-15.3); MCH 23.1 pg (25.7-33.7); MCHC 31.8 g/dl (32.0-36.0); MEAN CELL VOLUME 72.6 fl (80-96); MEAN PLT VOLUME 6.8 fl (7.5-11.1); PLATELET COUNT 360 10^3/uL (134-434); RBC 4.84 M/mm3 (3.60-5.2); RDW 16.8 % (11.6-15.6); WHITE BLOOD COUNT 7.5 K/mm3 (4.0-10.0)
[2024-08-10 17:05] LABS: CHLORIDE 104 mmol/L (98-107); SODIUM 134 mmol/L (136-145)
[2024-08-10 17:07] LABS: ALBUMIN 3.8 g/dl (3.4-5.0); BLOOD UREA NITROGEN 10.4 mg/dL (7-18); CALCIUM 9.5 mg/dL (8.5-10.1); CO2 28 mmol/L (21-32); MAGNESIUM 2.2 mg/dL (1.8-2.4)
[2024-08-10 17:08] LABS: GLUCOSE,RANDOM 84 mg/dL (74-106)
[2024-08-10 17:12] LABS: BILIRUBIN,TOTAL 0.3 mg/dL (0.2-1)
[2024-08-10 17:13] LABS: ALK PHOS 72 U/L (45-117)
[2024-08-10 17:38] LABS: ANION GAP 2 mmol/L (4-13); POTASSIUM 9.4 mmol/L (3.5-5.1); SGOT/AST 162 U/L (15-37); SGPT/ALT 49 U/L (13-61)
[2024-08-10 17:45] LABS: ANISOCYTOSIS 2+; OVALOCYTE 1+; TARGET CELLS 1+
[2024-08-10] MEDS ORDERED: ACETAMINOPHEN INJECTION 100 ML ONE (18:22)
[2024-08-10 18:55] LABS: ACTIVATED PTT 28.1 SECONDS (25.2-36.5); CHLORIDE 106 mmol/L (98-107); INR 1.05 (0.83-1.09); PROTHROMBIN TIME (PATIENT) 11.8 SEC (9.7-13.0); SODIUM 134 mmol/L (136-145)
[2024-08-10 18:57] LABS: ALBUMIN 3.8 g/dl (3.4-5.0); CALCIUM 9.3 mg/dL (8.5-10.1); CO2 27 mmol/L (21-32)
[2024-08-10 18:58] LABS: GLUCOSE,RANDOM 108 mg/dL (74-106)
[2024-08-10 19:02] LABS: BILIRUBIN,TOTAL 0.4 mg/dL (0.2-1); TOT PROT 9.5 g/dl (6.4-8.2)
[2024-08-10 19:03] LABS: ALK PHOS 67 U/L (45-117)
[2024-08-10 19:26] LABS: ANION GAP 1 mmol/L (4-13); POTASSIUM > 10.0 mmol/L (3.5-5.1); SGOT/AST 134 U/L (15-37); SGPT/ALT 46 U/L (13-61)
[2024-08-10] MEDS: ACETAMINOPHEN 1000 MG/100 ML BAG IVPB ONE (22:03)
[2024-08-10 22:36] LABS: CALCIUM 9.4 mg/dL (8.5-10.1)
[2024-08-10 22:37] LABS: ALBUMIN 3.8 g/dl (3.4-5.0); BLOOD UREA NITROGEN 9.7 mg/dL (7-18)
[2024-08-10 22:40] LABS: CREATININE 0.8 mg/dL (0.55-1.3)
[2024-08-10 22:42] LABS: BILIRUBIN,TOTAL 0.4 mg/dL (0.2-1); TOT PROT 8.6 g/dl (6.4-8.2)
[2024-08-11] MEDS: MECLIZINE HCL 12.5 MG TABLET PO PRN (01:32)
[2024-08-11] MEDS: GABAPENTIN 100 MG CAPSULE PO SCH (01:32)
[2024-08-11] MEDS: MIRTAZAPINE 15 MG TABLET (FP) PO ONE (01:32)
[2024-08-11] MEDS: ACETAMINOPHEN 325 MG TABLET (FP) PO PRN (01:34)
[2024-08-11 02:02] VITALS: BMI 31.0
[2024-08-11 09:12] LABS: BASO % 0.5 % (0-2.0); EOS % 3.6 % (0-4.5); HEMATOCRIT 34.5 % (32.4-45.2); HEMOGLOBIN 10.9 GM/dL (10.7-15.3); MCHC 31.5 g/dl (32.0-36.0); MEAN PLT VOLUME 6.8 fl (7.5-11.1); NEUT % 35.9 % (42.8-82.8); PLATELET COUNT 328 10^3/uL (134-434); RBC 4.73 M/mm3 (3.60-5.2); RDW 16.4 % (11.6-15.6); WHITE BLOOD COUNT 4.8 K/mm3 (4.0-10.0)
[2024-08-11 09:33] LABS: ALBUMIN 3.8 g/dl (3.4-5.0); CALCIUM 9.6 mg/dL (8.5-10.1); POTASSIUM 3.2 mmol/L (3.5-5.1)
[2024-08-11 09:34] LABS: BLOOD UREA NITROGEN 8.9 mg/dL (7-18)
[2024-08-11 09:37] LABS: CREATININE 0.8 mg/dL (0.55-1.3)
[2024-08-11 09:38] LABS: BILIRUBIN,TOTAL 0.6 mg/dL (0.2-1); TOT PROT 8.4 g/dl (6.4-8.2)
[2024-08-11] MEDS: ASPIRIN 81 MG CHEWABLE TABLETS PO SCH (09:55)
[2024-08-11] MEDS: DONEPEZIL HCL 5 MG TABLET (FP) PO SCH (09:55)
[2024-08-11] MEDS: amLODIPine BESYLATE 5 MG TABLET (FP) PO SCH (09:57)
[2024-08-11] MEDS: CHOLECALCIFEROL (VIT D3) 400 UNIT (10 MCG) TABLET PO SCH (09:57)
[2024-08-11] MEDS: METOPROLOL TARTRATE 25 MG TABLET (FP) PO SCH (09:57)
[2024-08-11 10:10] LABS: CHOLESTEROL 187 mg/dL (50-200)
[2024-08-11 10:12] LABS: LDL CHOLESTEROL (ONLY SJRH) 78 mg/dL (5-100)
[2024-08-11 10:13] LABS: HDL CHOLESTEROL 88 mg/dL (40-60)
[2024-08-11] MEDS: POTASSIUM CHLORIDE ORAL LIQUID 20 MEQ/15 ML PO ONE (11:11)
[2024-08-11] MEDS: ATORVASTATIN CA 40 MG TABLET (FP) PO SCH (21:34)
[2024-08-11] MEDS: MIRTAZAPINE 15 MG TABLET (FP) PO SCH (21:34)
[2024-08-11 22:58] LABS: HIV INTERPRETATION NEGATIVE (NEGATIVE)
[2024-08-11 23:08] VITALS: RESP 18
[2024-08-12] MEDS: LIDOCAINE 5% TOPICAL PATCH TP ONE (03:00)
[2024-08-12 08:16] LABS: POTASSIUM 3.5 mmol/L (3.5-5.1)
[2024-08-12 08:17] LABS: BLOOD UREA NITROGEN 17.7 mg/dL (7-18); CALCIUM 9.5 mg/dL (8.5-10.1)
[2024-08-12 08:21] LABS: CREATININE 0.9 mg/dL (0.55-1.3)
[2024-08-12] MEDS ORDERED: LIDOCAINE PATCH REMOVAL MC SCH (10:00)
[2024-08-12] MEDS: LIDOCAINE PATCH REMOVAL MC SCH (11:15)
[2024-08-12] MEDS: LIDOCAINE PATCH REMOVAL MC ONE (15:16)
[2024-08-12 15:53] VITALS: BP 128/62; PULSE 70; TEMP 98.5
== END 2024-08-12 17:25 | disposition home or self-care (01) ==
LOC: JER 15:11 → JERBED 17:50 → J4S 23:30
PROVIDERS: ADMIT Internal Medicine; ATTEND Family Medicine
PROC: 3E033NZ Introduction of Analgesics, Hypnotics, Sedatives into Peripheral Vein, Percutaneous Approach (ICD-10-PCS; principal; 2024-08-10)
DX: M19.012 Primary osteoarthritis, left shoulder (principal); G43.909 Migraine, unspecified, not intractable, without status migrainosus; R42 Dizziness and giddiness; I10 Essential (primary) hypertension; E11.9 Type 2 diabetes mellitus without complications; E78.5 Hyperlipidemia, unspecified; R94.31 Abnormal electrocardiogram [ECG] [EKG]; Z87.440 Personal history of urinary (tract) infections
CPT/HCPCS: 36415; 71045-TC-FY; 73030-TC-LT-FY; 80048; 80053; 80061; 82550; 82553; 83735; 84484; 85025; 85610; 85730; 86803; 87389; 93005; 93010; 93306-TC; 96374; 99285-25; G0378; J0131

== ENCOUNTER 2025-03-28 12:51 | Observation (INO) | payer OTHER ==
[2025-03-28 13:11] VITALS: RESP 18
[2025-03-28] MEDS ORDERED: ACETAMINOPHEN INJECTION 100 ML ONE (14:53)
[2025-03-28] MEDS: ACETAMINOPHEN 1000 MG/100 ML BAG IVPB ONE (15:28)
[2025-03-28 15:33] LABS: ABSOLUTE IMMATURE GRANULOCYTES 0.11 x10^3/uL (0.0-0.031); BASOPHILS # 0.02 x10^3/uL (0.01-0.08); EOSINOPHIL % 0.1 % (0.7-5.8); EOSINOPHILS # 0.02 x10^3/uL (0.04-0.36); MCHC 31.8 g/dl (32.2-35.5); MEAN CELL VOLUME 71.5 fl (79.4-94.8); MEAN PLT VOLUME 8.6 fl (9.4-12.3); MONOCYTE # 0.73 x10^3/uL (0.24-0.86); MONOCYTE % 5.1 % (4.7-12.5); RDW 15.2 % (12.5-17.0)
[2025-03-28 15:42] LABS: INR 1.24 (0.83-1.09); PROTHROMBIN TIME (PATIENT) 13.6 SEC (9.7-13.0)
[2025-03-28 15:45] LABS: ACTIVATED PTT 27.6 SECONDS (25.2-36.5)
[2025-03-28 15:50] LABS: EPI CELLS 12 /uL (0-25.1); HYALINE CASTS 2 /uL (0-3.1); URINE APPEARANCE CLEAR; URINE BACTERIA 138 /uL (0-1359); URINE BILIRUBIN NEGATIVE (NEGATIVE); URINE COLOR YELLOW; URINE GLUCOSE (UA) NEGATIVE (NEGATIVE); URINE KETONE NEGATIVE (NEGATIVE); URINE LEUK ESTERASE 2+ (NEGATIVE); URINE NITRITE NEGATIVE (NEGATIVE); URINE PROTEIN 1+ (NEGATIVE); URINE UROBILINOGEN 0.2 mg/dL (0.2-1.0); URINE WBC 127 /uL (0-25.8)
[2025-03-28 15:51] LABS: URINE RBC 25.6 /uL (0-23.9)
[2025-03-28 15:51] LABS: CO2 24.0 mmol/L (21-32)
[2025-03-28 15:52] LABS: GLUCOSE,RANDOM 115.0 mg/dL (74-106)
[2025-03-28 15:54] LABS: CREATININE 2.1 mg/dL (0.55-1.3); SGPT/ALT 34.0 U/L (13-61)
[2025-03-28 15:55] LABS: SGOT/AST 21.0 U/L (15-37)
[2025-03-28 15:57] LABS: TOT PROT 9.2 g/dl (6.4-8.2)
[2025-03-28 15:58] LABS: ALK PHOS 69.0 U/L (45-117)
[2025-03-28] MEDS: SODIUM CHLORIDE 0.9% 500 ML INFUS.BAG IV ONE (16:02)
[2025-03-28] MEDS: CIPROFLOXACIN 400 MG/D5W 400 MG/200 ML IVPB IVPB ONE (17:51)
[2025-03-28] MEDS ORDERED: CEFTRIAXONE 2 GM-D5W BAG 2 GM/50 ML BAG IVPB ONE (18:37)
[2025-03-29] MEDS: SODIUM CHLORIDE 0.45% 1,000 ML IV SCH (00:47)
[2025-03-29] MEDS: SODIUM CHLORIDE 500 ML IV STA (01:29)
[2025-03-29] MEDS: ACETAMINOPHEN 325 MG TABLET (FP) PO PRN (05:21)
[2025-03-29] MEDS ORDERED: MECLIZINE HCL 12.5 MG TABLET PO PRN (08:40)
[2025-03-29 09:14] LABS: ABSOLUTE IMMATURE GRANULOCYTES 0.05 x10^3/uL (0.0-0.031); BASOPHILS # 0.01 x10^3/uL (0.01-0.08); EOSINOPHIL % 1.1 % (0.7-5.8); EOSINOPHILS # 0.12 x10^3/uL (0.04-0.36); MCHC 32.0 g/dl (32.2-35.5); MEAN CELL VOLUME 71.7 fl (79.4-94.8); MEAN PLT VOLUME 9.1 fl (9.4-12.3); MONOCYTE # 0.68 x10^3/uL (0.24-0.86); MONOCYTE % 6.1 % (4.7-12.5); RDW 14.7 % (12.5-17.0)
[2025-03-29 09:49] LABS: CO2 22.0 mmol/L (21-32); GLUCOSE,RANDOM 113.0 mg/dL (74-106)
[2025-03-29 09:52] LABS: CREATININE 1.3 mg/dL (0.55-1.3); SGOT/AST 17.0 U/L (15-37); SGPT/ALT 24.0 U/L (13-61)
[2025-03-29 09:53] LABS: TOT PROT 7.9 g/dl (6.4-8.2)
[2025-03-29 09:54] LABS: ALK PHOS 58.0 U/L (45-117)
[2025-03-29] MEDS: DONEPEZIL HCL 5 MG TABLET (FP) PO SCH (11:01)
[2025-03-29] MEDS: ASPIRIN 81 MG CHEWABLE TABLETS PO SCH (11:01)
[2025-03-29 13:52] VITALS: BMI 30.5
[2025-03-29] MEDS: CEFTRIAXONE 1 GM in DEXTROSE 5%-WATER - 50 ML IVPB SCH (14:11)
[2025-03-29] MEDS: HEPARIN NA (PORCINE) 5,000 UNITS/ML 1ML VIAL SQ SCH (14:11)
[2025-03-29 14:21] LABS: IRON SERUM 18.0 ug/dL (50-175)
[2025-03-29] MEDS: IRON SUCROSE INJECTION 200 MG in SODIUM CHLORIDE 100 ML IVPB ONE (20:05)
[2025-03-29] MEDS: GABAPENTIN 100 MG CAPSULE PO SCH (21:04)
[2025-03-29] MEDS: ATORVASTATIN CA 40 MG TABLET (FP) PO SCH (21:04)
[2025-03-29] MEDS: MIRTAZAPINE 15 MG TABLET (FP) PO SCH (21:04)
[2025-03-30 08:29] LABS: ABSOLUTE IMMATURE GRANULOCYTES 0.03 x10^3/uL (0.0-0.031); BASOPHILS # 0.03 x10^3/uL (0.01-0.08); EOSINOPHIL % 2.3 % (0.7-5.8); EOSINOPHILS # 0.18 x10^3/uL (0.04-0.36); MCHC 31.1 g/dl (32.2-35.5); MEAN CELL VOLUME 71.6 fl (79.4-94.8); MEAN PLT VOLUME 9.1 fl (9.4-12.3); MONOCYTE # 0.60 x10^3/uL (0.24-0.86); MONOCYTE % 7.6 % (4.7-12.5); RDW 14.8 % (12.5-17.0)
[2025-03-30 09:04] LABS: CO2 22.0 mmol/L (21-32); GLUCOSE,RANDOM 102.0 mg/dL (74-106)
[2025-03-30 09:07] LABS: CREATININE 1.0 mg/dL (0.55-1.3); SGOT/AST 15.0 U/L (15-37); SGPT/ALT 22.0 U/L (13-61)
[2025-03-30 09:09] LABS: TOT PROT 7.6 g/dl (6.4-8.2)
[2025-03-30 09:10] LABS: ALK PHOS 58.0 U/L (45-117)
[2025-03-30] MEDS: CEFTRIAXONE 2 GM in DEXTROSE 5%-WATER 100 ML IVPB SCH (11:47)
[2025-03-30] MEDS: SODIUM CHLORIDE 0.45% 1,000 ML IV SCH (13:48)
[2025-03-30] MEDS: POTASSIUM CHLORIDE ORAL LIQUID 20 MEQ/15 ML PO ONE (13:49)
[2025-03-31] MEDS: PANTOPRAZOLE 40 MG TABLET PO SCH (09:42)
[2025-04-01 09:42] LABS: CO2 23.0 mmol/L (21-32); GLUCOSE,RANDOM 142.0 mg/dL (74-106)
[2025-04-01 09:45] LABS: CREATININE 1.0 mg/dL (0.55-1.3); SGOT/AST 22.0 U/L (15-37); SGPT/ALT 21.0 U/L (13-61)
[2025-04-01 09:46] LABS: TOT PROT 7.1 g/dl (6.4-8.2)
[2025-04-01 09:48] LABS: ALK PHOS 51.0 U/L (45-117)
[2025-04-01 16:29] VITALS: TEMP 99.1
[2025-04-01 17:41] VITALS: BP 134/70; PULSE 72
== END 2025-04-01 17:45 | disposition home health service (06) ==
LOC: JER 12:51 → INTOOBSV 17:52 → UNDOADMOB 17:52 → JERBED 17:52 → J5S 22:52 → JERBED 03-29 11:51 → J5S 03-29 11:51
PROVIDERS: ADMIT Family Medicine; ATTEND Family Medicine
PROC: 3E033NZ Introduction of Analgesics, Hypnotics, Sedatives into Peripheral Vein, Percutaneous Approach (ICD-10-PCS; principal; 2025-03-29)
PROC: 3E03329 Introduction of Other Anti-infective into Peripheral Vein, Percutaneous Approach (ICD-10-PCS; 2025-03-29)
PROC: 3E023GC Introduction of Other Therapeutic Substance into Muscle, Percutaneous Approach (ICD-10-PCS; 2025-03-29)
PROC: 3E033GC Introduction of Other Therapeutic Substance into Peripheral Vein, Percutaneous Approach (ICD-10-PCS; 2025-03-29)
PROC: 3E0337Z Introduction of Electrolytic and Water Balance Substance into Peripheral Vein, Percutaneous Approach (ICD-10-PCS; 2025-03-29)
DX: N20.0 Calculus of kidney (principal); N39.0 Urinary tract infection, site not specified; K21.9 Gastro-esophageal reflux disease without esophagitis; R42 Dizziness and giddiness; I12.9 Hypertensive chronic kidney disease with stage 1 through stage 4 chronic kidney disease, or unspecified chronic kidney disease; E78.5 Hyperlipidemia, unspecified; E11.9 Type 2 diabetes mellitus without complications; N17.9 Acute kidney failure, unspecified; E11.22 Type 2 diabetes mellitus with diabetic chronic kidney disease; N18.9 Chronic kidney disease, unspecified; Z88.5 Allergy status to narcotic agent
CPT/HCPCS: 36415; 71045-TC-FY; 74176-TC; 76705-TC; 80053; 81003; 82248; 82607; 82728; 82746; 83540; 83550; 83690; 83735; 84100; 84484; 85025; 85610; 85730; 86850; 86900; 86901; 87040; 87045; 87046; 87086; 87209; 87324; 87449; 93005; 93010; 96361; 96365; 96366; 96367; 96372; 96375; 99285-25; G0378; J1756